=== PATIENT | male | born 1970 | race Caucasian/White ===

== ENCOUNTER 2019-05-24 15:41 | Emergency (ER) | payer MEDICAID ==
[2019-05-24] MEDS: HYDROCODONE/APAP (5/325) TAB PO (16:22)
[2019-05-24] MEDS: KETOROLAC 60 MG INJ IM (16:22)
[2019-05-24] MEDS: DIPHTH/TET/ACEL PERTUSS (ADULT) 0.5 ML VIAL IM* (16:41)
[2019-05-24] MEDS: LIDOCAINE 4% SOLUTION 50 ML BTL TOP (16:59)
== END 2019-05-24 19:45 | disposition home or self-care (01) ==
LOC: FTE 15:41
DX: S61.202A Unspecified open wound of right middle finger without damage to nail, initial encounter (principal); S61.204A Unspecified open wound of right ring finger without damage to nail, initial encounter; W20.8XXA Other cause of strike by thrown, projected or falling object, initial encounter; Y92.89 Other specified places as the place of occurrence of the external cause; Z23 Encounter for immunization
CPT/HCPCS: 73130; 73130-RT; 90471; 90715; 96372; 99284-25